=== PATIENT | female | born 1975 | race Caucasian/White ===

== ENCOUNTER → 2017-04-06 | Outpatient (CLI) | payer BC ==
[~2017-04-06] MED LIST: DIAZEPAM PO; DICYCLOMINE HCL20 MG PO; FIORICET 50-321 EACH PO; FIORICET PO; FIORICET W/CODE1 CAP; FIORICET W/CODE1 CAP PO; GABAPENTIN300 MG PO; IMITREX; IMITREX4 MG/0.5 M SQ; KEFLEX500 M1 PO; LORTAB 5-325 M1 EACH PO; LORTAB 5/500 TA1 TA1 PO; MAGNESIUM27 MG; NAPROXEN PO; PHENERGAN PO; PHENERGAN12.5 MG PO; TOPAMAX25 MG PO; TROKENDI XR50 MG PO; VALIUM2 MG PO
== END | disposition home or self-care (01) ==
LOC: CSSDAY 11:00
DX: G43.909 Migraine, unspecified, not intractable, without status migrainosus (principal); Z79.899 Other long term (current) drug therapy
CPT/HCPCS: 96365; 96367; 96374; 96375; J1100; J3475

== ENCOUNTER → 2017-04-07 | Outpatient (CLI) | payer BC | END | disposition home or self-care (01) | LOC: CSSDAY 07:15 | DX: G43.909 Migraine, unspecified, not intractable, without status migrainosus (principal); Z79.899 Other long term (current) drug therapy | CPT/HCPCS: 96365; 96367; 96374; 96375; J1100; J3475 ==

== ENCOUNTER → 2017-04-08 | Outpatient (CLI) | payer BC | END | disposition home or self-care (01) | LOC: CSSDAY 10:00 | DX: G43.909 Migraine, unspecified, not intractable, without status migrainosus (principal); Z79.899 Other long term (current) drug therapy | CPT/HCPCS: 96365; 96367; 96374; 96375; J1100; J3475 ==

== ENCOUNTER → 2017-04-09 | Outpatient (CLI) | payer BC | END | disposition home or self-care (01) | LOC: CSSDAY 09:00 | DX: G43.909 Migraine, unspecified, not intractable, without status migrainosus (principal); Z79.899 Other long term (current) drug therapy | CPT/HCPCS: 96365; 96367; 96374; 96375; J1100; J3475 ==

== ENCOUNTER → 2017-04-12 | Outpatient (CLI) | payer BC | END | disposition home or self-care (01) | LOC: CSSDAY 10:03 | DX: G43.909 Migraine, unspecified, not intractable, without status migrainosus (principal); Z79.899 Other long term (current) drug therapy | CPT/HCPCS: 96365; 96367; 96374; 96375; J1100; J3475 ==

== ENCOUNTER → 2017-04-26 | Outpatient (CLI) | payer BC | END | disposition home or self-care (01) | LOC: CSSDAY 11:28 | DX: G43.909 Migraine, unspecified, not intractable, without status migrainosus (principal); Z79.899 Other long term (current) drug therapy | CPT/HCPCS: 96374; 96375; J1110; J2765 ==

== ENCOUNTER → 2017-04-27 | Outpatient (CLI) | payer BC | END | disposition home or self-care (01) | LOC: CSSDAY 08:06 | DX: G43.909 Migraine, unspecified, not intractable, without status migrainosus (principal); Z79.899 Other long term (current) drug therapy | CPT/HCPCS: 96374; 96375; J1110; J2765 ==

== ENCOUNTER → 2017-04-28 | Outpatient (CLI) | payer BC | END | disposition home or self-care (01) | LOC: CSSDAY 08:04 | DX: G43.909 Migraine, unspecified, not intractable, without status migrainosus (principal); Z79.899 Other long term (current) drug therapy | CPT/HCPCS: 96374; 96375; J1110; J2765 ==